=== PATIENT | male | born 1985 | race Asian ===

== ENCOUNTER 2019-06-02 03:34 | Emergency (ER) | payer OTHER ==
[~2019-06-02] VITALS: Ht 175.3 cm; Wt 86.2 kg
--- NOTE | 2019-06-02 04:30 | NUR ---
PT BIBSELF C/O HEADACHE/DIZZINESS X 1HOUR. PT AXO4. RESPIRATIONS EVEN AND UNLABORED. PT STATES HE HAD THIS 1 WEEK AGO. PT AMBULATORY WITH STEADY GAIT. PT PUT ON THE MONITOR AND PULSE OX.
[2019-06-02] MEDS ORDERED: KETOROLAC TROMETHAMINE 15 MG/ML VIAL ONE (04:50)
[2019-06-02] MEDS ORDERED: SUMATRIPTAN SUCCINATE 6 MG/0.5 ML VIAL SQ ONE ×2 (04:50→05:00)
[2019-06-02] MEDS ORDERED: ONDANSETRON HCL/PF 4 MG/2 ML VIAL ONE (04:51)
[2019-06-02] MEDS ORDERED: IV NS 0.9% 1,000 ML BAG IV ONE (05:00)
[2019-06-02] MEDS ORDERED: ONDANSETRON HCL/PF 4 MG/2 ML VIAL IV ONE (05:00)
[2019-06-02] MEDS ORDERED: KETOROLAC TROMETHAMINE INJ 30 MG/ML VIAL IV ONE (05:00)
[2019-06-02 05:08] LABS: BASOPHILS % (AUTO) 0.3 % (0.0-2.0); EOSINOPHILS % (AUTO) 0.8 % (0.0-6.0); HEMATOCRIT 48 % (39-51); HEMOGLOBIN 15.8 g/dL (13.5-17.5); LYMPHOCYTES # (AUTO) 0.9 /CMM (0.8-4.8); LYMPHOCYTES % (AUTO) 6.1 % (20.0-44.0); MEAN CORPUSCULAR HGB CONC 33 g/dl (31.0-36.0); MEAN CORPUSCULAR VOLUME 87 fL (80-96); MONOCYTES # (AUTO) 1.1 /CMM (0.1-1.30); MONOCYTES % (AUTO) 7.2 % (2.0-12.0); NEUTROPHILS # (AUTO) 12.6 /CMM (1.8-8.9); NEUTROPHILS % (AUTO) 85.6 % (43.0-81.0); PLATELET COUNT (AUTO) 345 /CMM (150-450); RED BLOOD CELL COUNT(AUTO) 5.47 MIL/uL (4.5-6.0); WHITE BLOOD COUNT (AUTO) 14.7 K/uL (4.3-11.0)
[2019-06-02 05:36] LABS: CALCIUM, SERUM 9.1 mg/dL (8.5-10.1); CREATININE 0.8 mg/dL (0.6-1.3); POTASSIUM 4.1 mmol/L (3.5-5.1)
[2019-06-02 06:18] VITALS: BP 114/82
--- NOTE | 2019-06-02 06:18 | NUR ---
Patient discharged to home in stable condition. Written and verbal after care instructions given. Patient verbalizes understanding of instruction.
--- NOTE | 2019-06-02 06:18 | NUR ---
IV removed. Catheter intact and site benign. Pressure and 4x4 applied to site. No bleeding noted.
== END 2019-06-02 06:19 | disposition home or self-care (01) ==
LOC: ER 03:39
DX: G44.009 Cluster headache syndrome, unspecified, not intractable (principal); R42 Dizziness and giddiness; Z98.890 Other specified postprocedural states
CPT/HCPCS: 36415; 80048; 85025; 96361; 96372; 96374; 96375; 99283; J1885; J2405; J3030; J7030

== ENCOUNTER 2020-03-07 20:40 | Emergency (ER) | payer BC, OTHER | END 2020-03-07 21:34 | disposition home or self-care (01) | LOC: ER 20:43 | DX: Z03.818 Encounter for observation for suspected exposure to other biological agents ruled out (principal); G43.909 Migraine, unspecified, not intractable, without status migrainosus | CPT/HCPCS: 99283; U0003 ==

== ENCOUNTER 2020-07-11 21:12 | Emergency (ER) | payer OTHER ==
[~2020-07-11] VITALS: Ht 175.3 cm; Wt 86.2 kg
[2020-07-11 21:12] VITALS: BP 132/60
== END 2020-07-11 21:45 | disposition home or self-care (01) ==
LOC: ER 21:16
DX: Z20.828 Contact with and (suspected) exposure to other viral communicable diseases (principal); Z86.69 Personal history of other diseases of the nervous system and sense organs
CPT/HCPCS: 99283; C9803; U0003

== ENCOUNTER 2020-09-16 04:01 | Emergency (ER) | payer OTHER ==
[~2020-09-16] VITALS: Ht 175.3 cm; Wt 86.2 kg
[2020-09-16 04:04] VITALS: BP 132/85
== END 2020-09-16 04:23 | disposition home or self-care (01) ==
LOC: ER 04:01
DX: Z20.828 Contact with and (suspected) exposure to other viral communicable diseases (principal); Z86.69 Personal history of other diseases of the nervous system and sense organs
CPT/HCPCS: 99283; C9803; U0003

== ENCOUNTER 2020-10-01 04:22 | Emergency (ER) | payer OTHER ==
[~2020-10-01] VITALS: Ht 175.3 cm; Wt 86.2 kg
[2020-10-01 04:37] VITALS: BP 124/76
== END 2020-10-01 04:38 | disposition home or self-care (01) ==
LOC: ER 04:23
DX: Z20.828 Contact with and (suspected) exposure to other viral communicable diseases (principal); Z86.69 Personal history of other diseases of the nervous system and sense organs
CPT/HCPCS: 99283; C9803; U0003

== ENCOUNTER 2020-10-08 03:17 | Emergency (ER) | payer OTHER ==
[~2020-10-08] VITALS: Ht 175.3 cm; Wt 90.7 kg
[2020-10-08 03:18] VITALS: BP 132/64
== END 2020-10-08 03:57 | disposition home or self-care (01) ==
LOC: ER 03:17
DX: Z20.828 Contact with and (suspected) exposure to other viral communicable diseases (principal)
CPT/HCPCS: 99283; C9803; U0003

== ENCOUNTER 2020-10-12 05:28 | Emergency (ER) | payer OTHER ==
[~2020-10-12] VITALS: Ht 175.3 cm; Wt 90.7 kg
[2020-10-12 05:31] VITALS: BP 128/84
--- NOTE | 2020-10-13 23:56 | NUR ---
LAB CALLED REGARDING NEGATIVE COVID RESULT.
== END 2020-10-12 05:47 | disposition home or self-care (01) ==
LOC: ER 05:28
DX: Z20.828 Contact with and (suspected) exposure to other viral communicable diseases (principal); Z86.69 Personal history of other diseases of the nervous system and sense organs
CPT/HCPCS: 99283; C9803; U0003

== ENCOUNTER 2020-11-09 01:14 | Emergency (ER) | payer OTHER ==
[~2020-11-09] VITALS: Ht 170.2 cm; Wt 73.9 kg
[2020-11-09 01:16] VITALS: BP 135/85
== END 2020-11-09 01:56 | disposition home or self-care (01) ==
LOC: ER 01:19
DX: Z20.822 Contact with and (suspected) exposure to COVID-19 (principal); Z86.69 Personal history of other diseases of the nervous system and sense organs
CPT/HCPCS: 99283; C9803; U0003

== ENCOUNTER 2020-12-21 01:08 | Emergency (ER) | payer OTHER ==
[~2020-12-21] VITALS: Ht 170.2 cm; Wt 72.6 kg
[2020-12-21 01:11] VITALS: BP 123/78
== END 2020-12-21 02:18 | disposition home or self-care (01) ==
LOC: ER 01:15
DX: Z20.822 Contact with and (suspected) exposure to COVID-19 (principal); Z86.69 Personal history of other diseases of the nervous system and sense organs
CPT/HCPCS: 99283; C9803; U0003

== ENCOUNTER 2021-01-09 04:02 | Emergency (ER) | payer OTHER ==
[~2021-01-09] VITALS: Ht 175.3 cm; Wt 83.9 kg
[2021-01-09 04:02] VITALS: BP 132/75
== END 2021-01-09 05:55 | disposition home or self-care (01) ==
LOC: ER 04:02
DX: Z20.822 Contact with and (suspected) exposure to COVID-19 (principal)
CPT/HCPCS: 99283; C9803; U0003

== ENCOUNTER 2021-01-13 01:40 | Emergency (ER) | payer OTHER ==
[~2021-01-13] VITALS: Ht 175.3 cm; Wt 85.7 kg
[2021-01-13 01:40] VITALS: BP 129/55
== END 2021-01-13 02:15 | disposition home or self-care (01) ==
LOC: ER 01:42
DX: Z20.822 Contact with and (suspected) exposure to COVID-19 (principal); Z86.69 Personal history of other diseases of the nervous system and sense organs
CPT/HCPCS: 99283; C9803; U0003

== ENCOUNTER 2021-01-30 21:41 | Emergency (ER) | payer OTHER ==
[~2021-01-30] VITALS: Ht 170.2 cm; Wt 73.9 kg
[2021-01-30 21:43] VITALS: BP 118/69
== END 2021-01-30 22:44 | disposition home or self-care (01) ==
LOC: ER 21:42
DX: Z20.822 Contact with and (suspected) exposure to COVID-19 (principal); Z86.69 Personal history of other diseases of the nervous system and sense organs
CPT/HCPCS: 99283; C9803; U0003

== ENCOUNTER 2021-02-04 03:01 | Emergency (ER) | payer OTHER ==
[~2021-02-04] VITALS: Ht 170.2 cm; Wt 73.9 kg
[2021-02-04 03:05] VITALS: BP 126/73
== END 2021-02-04 03:45 | disposition home or self-care (01) ==
LOC: ER 03:01
DX: Z20.822 Contact with and (suspected) exposure to COVID-19 (principal); Z86.69 Personal history of other diseases of the nervous system and sense organs
CPT/HCPCS: 99283; C9803; U0003

== ENCOUNTER 2021-02-11 04:32 | Emergency (ER) | payer OTHER ==
[~2021-02-11] VITALS: Ht 170.2 cm; Wt 73.9 kg
[2021-02-11 04:33] VITALS: BP 128/88
== END 2021-02-11 05:05 | disposition home or self-care (01) ==
LOC: ER 04:32
DX: Z20.822 Contact with and (suspected) exposure to COVID-19 (principal)
CPT/HCPCS: 99283; C9803; U0003

== ENCOUNTER 2021-02-19 05:56 | Emergency (ER) | payer OTHER ==
[~2021-02-19] VITALS: Ht 170.2 cm; Wt 73.9 kg
[2021-02-19] MEDS ORDERED: methylPREDNISolone SOD SUCC 125 MG/2ML VIAL IV ONE (06:00)
[2021-02-19] MEDS ORDERED: TERBUTALINE SULFATE 1 MG/ML VIAL SQ ONE (06:00)
[2021-02-19] MEDS ORDERED: IPRATROPIUM NEB FS 0.5 MG/2.5 ML AMPUL.NEB NEB ONE (06:00)
[2021-02-19] MEDS ORDERED: Magnesium 1GM/D5W 100ML PREMIX 200 ML IV ONE (06:00)
[2021-02-19] MEDS ORDERED: ALBUTEROL FS 2.5 MG/3 ML VIAL.NEB CONTNEB ONE (06:00)
[2021-02-19 06:47] VITALS: BP 118/68
== END 2021-02-19 06:50 | disposition home or self-care (01) ==
LOC: ER 05:58
DX: Z20.822 Contact with and (suspected) exposure to COVID-19 (principal)
CPT/HCPCS: 99283; C9803; U0003

== ENCOUNTER 2021-03-01 02:44 | Emergency (ER) | payer OTHER ==
[~2021-03-01] VITALS: Ht 175.3 cm; Wt 81.6 kg
[2021-03-01 02:45] VITALS: BP 128/71
== END 2021-03-01 03:47 | disposition home or self-care (01) ==
LOC: ER 02:51
DX: Z20.822 Contact with and (suspected) exposure to COVID-19 (principal); Z86.69 Personal history of other diseases of the nervous system and sense organs
CPT/HCPCS: 99283; C9803; U0003

== ENCOUNTER 2021-03-08 03:43 | Emergency (ER) | payer OTHER ==
[~2021-03-08] VITALS: Ht 175.3 cm; Wt 81.6 kg
[2021-03-08 03:44] VITALS: BP 122/75
== END 2021-03-08 04:44 | disposition home or self-care (01) ==
LOC: ER 03:44
DX: Z20.822 Contact with and (suspected) exposure to COVID-19 (principal)
CPT/HCPCS: 99283; C9803; U0003

== ENCOUNTER 2021-03-20 02:28 | Emergency (ER) | payer OTHER ==
[~2021-03-20] VITALS: Ht 175.3 cm; Wt 81.6 kg
[2021-03-20 02:29] VITALS: BP 118/63
== END 2021-03-20 02:49 | disposition home or self-care (01) ==
LOC: ER 02:28
DX: Z20.822 Contact with and (suspected) exposure to COVID-19 (principal); Z86.69 Personal history of other diseases of the nervous system and sense organs
CPT/HCPCS: 99283; C9803; U0003

== ENCOUNTER 2021-03-26 04:26 | Emergency (ER) | payer OTHER ==
[~2021-03-26] VITALS: Ht 175.3 cm; Wt 88.5 kg
[2021-03-26 04:28] VITALS: BP 118/69
== END 2021-03-26 04:35 | disposition home or self-care (01) ==
LOC: ER 04:28
DX: Z20.822 Contact with and (suspected) exposure to COVID-19 (principal); Z86.69 Personal history of other diseases of the nervous system and sense organs
CPT/HCPCS: 99283; C9803; U0003

== ENCOUNTER 2021-04-01 04:32 | Emergency (ER) | payer OTHER ==
[~2021-04-01] VITALS: Ht 175.3 cm; Wt 81.6 kg
[2021-04-01 04:32] VITALS: BP 117/84
== END 2021-04-01 05:35 | disposition home or self-care (01) ==
LOC: ER 04:32
DX: Z20.822 Contact with and (suspected) exposure to COVID-19 (principal)
CPT/HCPCS: 99283; C9803; U0003

== ENCOUNTER 2024-09-23 09:32 | Emergency (ER) | payer OTHER ==
[~2024-09-23] VITALS: Ht 172.7 cm; Wt 92.1 kg
[2024-09-23 10:00] VITALS: BP 121/81; TEMP 97.9; O2SAT 99
[2024-09-23] MEDS: AZITHROMYCIN 250 MG TABLET PO ONE (10:02)
== END 2024-09-23 10:02 | disposition home or self-care (01) ==
LOC: ER 09:35
DX: Z20.811 Contact with and (suspected) exposure to meningococcus (principal)

== ENCOUNTER 2025-05-06 21:57 | Emergency (ER) | payer OTHER ==
[~2025-05-06] VITALS: Ht 172.7 cm; Wt 88.0 kg
[2025-05-06 22:03] VITALS: BP 131/65; TEMP 98.5; O2SAT 97
[2025-05-06] MEDS ORDERED: CIPROFLOXACIN HCL 250 MG TABLET PO ONE (22:30)
[2025-05-07] MEDS ORDERED: AZITHROMYCIN 250 MG TABLET PO ONE
[2025-05-07] MEDS ORDERED: CIPROFLOXACIN HCL 500 MG TABLET ONE (00:37)
[2025-05-07] MEDS ORDERED: AZITHROMYCIN 250 MG TABLET ONE (00:40)
== END 2025-05-07 01:56 | disposition home or self-care (01) ==
LOC: ER 22:00
DX: Z13.89 Encounter for screening for other disorder (principal)